=== PATIENT | female | born 1995 | race Two or more races ===

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

== ENCOUNTER 2017-07-08 03:43 | Observation (INO) | payer BC, MEDICAID ==
[~2017-07-08] VITALS: Ht 162.6 cm; Wt 115.7 kg
[2017-07-08] MEDS ORDERED: PNV1TABL76 MT (04:42)
== END 2017-07-08 05:00 | disposition home or self-care (01) ==
LOC: L&D 03:43
PROVIDERS: ADMIT Obstetrics & Gynecology; ATTEND Obstetrics & Gynecology
DX: O48.0 Post-term pregnancy (principal); Z3A.40 40 weeks gestation of pregnancy
CPT/HCPCS: 99281; G0378

== ENCOUNTER 2017-07-08 16:53 | Observation (INO) | payer MEDICAID ==
[~2017-07-08] VITALS: Ht 162.6 cm; Wt 113.9 kg
[~2017-07-08 16:53] MED LIST: PNV1TABL76 MT
== END 2017-07-08 18:00 | disposition home or self-care (01) ==
LOC: L&D 16:53
PROVIDERS: ADMIT Specialist; ATTEND Specialist
DX: O48.0 Post-term pregnancy (principal); Z3A.41 41 weeks gestation of pregnancy
CPT/HCPCS: G0378

== ENCOUNTER 2017-07-10 04:05 | Inpatient (IN) | payer MEDICAID ==
[~2017-07-10] VITALS: Ht 162.6 cm; Wt 115.7 kg
[2017-07-10] MEDS ORDERED: DEXT 5%/LR + PITOCIN 20UNITS/L 1,000 ML IV SCH (04:52)
[2017-07-10] MEDS ORDERED: PREN-176 PO (04:52)
[2017-07-10] MEDS ORDERED: NALOXONE HCL 0.4 MG/ML 1ML VIAL IM PRN (05:00)
[2017-07-10] MEDS ORDERED: METHYLERGONOVINE MALEATE 0.2 MG/ML IM PRN (05:00)
[2017-07-10] MEDS ORDERED: LIDOCAINE HCL 1% 20ML VIAL (Pyxis) INJ INFIL SCH (05:00)
[2017-07-10] MEDS: LACTATED RINGERS 1,000 ML IV SCH ×4 (05:18→22:22)
[2017-07-10] MEDS: BUTORPHANOL TARTRATE 2 MG/ML VIAL IV PRN ×3 (05:45→19:42)
[2017-07-10 06:37] LABS: CLARITY URINE CLEAR (CLEAR); COLOR URINE YELLOW (YELLOW); KETONES URINE NEGATIVE (NEGATIVE); LEUKOCYTE ESTERASE URINE NEGATIVE (NEGATIVE); NITRITE URINE NEGATIVE (NEGATIVE); OCCULT BLOOD URINE NEGATIVE (NEGATIVE); PROTEIN URINE 1+ (NEGATIVE); SPECIFIC GRAVITY URINE 1.017 (1.005-1.030); UROBILINOGEN URINE 0.2 E.U./dL (0.2-1.0)
[2017-07-10 06:45] LABS: INR 0.9; PARTIAL THROMBOPLASTIN TIME 26.6 sec (23.4-31.0); PROTHROMBIN TIME 9.7 sec (9.4-11.6)
[2017-07-10 06:46] LABS: BASOPHILS % 0.2 % (0.0-2.0); EOSINOPHILS % 0.5 % (0.0-5.0); HEMATOCRIT. 38.6 % (36.0-48.0); LYMPHOCYTES % 19.9 % (20.0-50.0); MEAN CORPUSCULAR HEMOGLOBIN 29.6 pg (28.0-32.0); MEAN CORPUSCULAR VOLUME 88.2 fL (81.0-99.0); MEAN PLATELET VOLUME 11.3 fl (7.4-10.4); NEUTROPHILS % 71.4 % (40.0-76.0); PLATELET 197 x1000/uL (130-400); RED BLOOD CELL COUNT 4.38 mill/uL (4.2-5.4); RED CELL DISTRIBUTION WIDTH 14.4 % (11.6-14.6)
[2017-07-10 07:15] LABS: *AMPHETAMINES SCREEN URINE NEGATIVE (NEGATIVE); *BARBITURATES SCREEN URINE NEGATIVE (NEGATIVE); *BENZODIAZEPINES SCREEN URINE NEGATIVE (NEGATIVE); *COCAINE SCREEN URINE NEGATIVE (NEGATIVE); CANNABINOID URINE SCREEN NEGATIVE (NEGATIVE); METHADONE URINE SCREEN NEGATIVE (NEGATIVE); OPIATES URINE SCREEN NEGATIVE (NEGATIVE); PHENCYCLIDINE URINE SCREEN NEGATIVE (NEGATIVE)
[2017-07-10] MEDS ORDERED: INFLUENZA VIRUS VACCINE 0.5ML SYR IM ONE (12:00)
[2017-07-10 13:18] LABS: RUBELLA IGG 124.9 IU/mL (4.99-10)
[2017-07-10 13:19] LABS: HEPATITIS B SURFACE ANTIGEN NEGATIVE
[2017-07-10] MEDS ORDERED: CITRIC ACID/SODIUM CITRATE SOLN 30ML UDC PO NR (20:45)
[2017-07-10] MEDS ORDERED: EPHEDRINE SULFATE 50MG/ML VIAL ONE (21:04)
[2017-07-10] MEDS ORDERED: SODIUM CHLORIDE 0.9% 10ML VIAL ONE ×2 (21:04→21:10)
[2017-07-10] MEDS ORDERED: BUPIVACAINE HCL/PF 0.25% (2.5MG/ML) 10ML ONE (21:04)
[2017-07-10] MEDS ORDERED: FENTANYL CITRATE/PF 50MCG/ML 2ML VIAL ONE (21:08)
[2017-07-10] MEDS ORDERED: BUPIVACAINE HCL/NS/PF EPIDURAL 100 ML EP ONE (22:42)
[2017-07-11] MEDS ORDERED: DEXT 5%/LR + PITOCIN 20UNITS/L 1,000 ML IV SCH (04:48)
[2017-07-11] MEDS ORDERED: METHYLERGONOVINE MALEATE 0.2 MG/ML IM PRN (05:00)
[2017-07-11] MEDS ORDERED: IBUPROFEN 400MG TABLET PO PRN (05:00)
[2017-07-11] MEDS ORDERED: DIPHENHYDRAMINE 25MG CAPSULE PO PRN (05:00)
[2017-07-11] MEDS ORDERED: LANOLIN OINT 0.25 GM TUBE TOP PRN (05:00)
[2017-07-11] MEDS ORDERED: RHO(D) IMMUNE GLOBULIN 300 MCG/SYR IM PRN (05:00)
[2017-07-11 07:00] VITALS: BP 112/69
[2017-07-11 08:10] VITALS: BP 112/69
[2017-07-11] MEDS: IBUPROFEN 800MG TABLET PO PRN (10:33)
[2017-07-11] MEDS: PRENATAL VIT/FE FUMARATE/FA TABLET PO SCH (10:36)
[2017-07-11 16:23] VITALS: BP 112/54
[2017-07-11 19:24] VITALS: BP 106/64
[2017-07-11 23:58] VITALS: BP 113/62
[2017-07-12 07:22] LABS: BASOPHILS % 0.3 % (0.0-2.0); EOSINOPHILS % 1.1 % (0.0-5.0); HEMATOCRIT. 31.1 % (36.0-48.0); HEMOGLOBIN. 10.5 g/dL (12.0-16.0); LYMPHOCYTES % 24.8 % (20.0-50.0); MEAN CORPUSCULAR VOLUME 88.8 fL (81.0-99.0); MEAN PLATELET VOLUME 11.2 fl (7.4-10.4); NEUTROPHILS % 64.8 % (40.0-76.0); PLATELET 151 x1000/uL (130-400); RED CELL DISTRIBUTION WIDTH 14.5 % (11.6-14.6)
[2017-07-12 07:32] VITALS: BP 103/50
[2017-07-12] MEDS: PRENATAL VIT/FE FUMARATE/FA TABLET PO SCH (08:10)
[2017-07-12] MEDS: IBUPROFEN 800MG TABLET PO PRN (08:10)
[2017-07-12 16:03] VITALS: BP 122/57
[2017-07-12 20:00] VITALS: BP 122/66
[2017-07-12 23:13] VITALS: BP 125/67
[2017-07-13] MEDS: PRENATAL VIT/FE FUMARATE/FA TABLET PO SCH (08:18)
[2017-07-13 08:20] VITALS: BP 117/63
[2017-07-13] MEDS: IBUPROFEN 800MG TABLET PO PRN (08:20)
== END 2017-07-13 11:40 | disposition home or self-care (01) | DRG 560 ==
LOC: L&D 04:05 → OBSVTOIN 04:05 → 7EST PP/OB 07-11 07:51
PROVIDERS: ADMIT Obstetrics & Gynecology; ATTEND Obstetrics & Gynecology
PROC: 0W8NXZZ Division of Female Perineum, External Approach (ICD-10-PCS; 2017-07-11)
PROC: 3E0R3BZ Introduction of Anesthetic Agent into Spinal Canal, Percutaneous Approach (ICD-10-PCS; 2017-07-11)
PROC: 00HU33Z Insertion of Infusion Device into Spinal Canal, Percutaneous Approach (ICD-10-PCS; 2017-07-11)
PROC: 10E0XZZ Delivery of Products of Conception, External Approach (ICD-10-PCS; principal; 2017-07-11 04:12)
DX: O48.0 Post-term pregnancy (principal); D62 Acute posthemorrhagic anemia; O70.9 Perineal laceration during delivery, unspecified; O99.03 Anemia complicating the puerperium; Z3A.38 38 weeks gestation of pregnancy; Z37.0 Single live birth
CPT/HCPCS: 36415; 80305; 81001; 85025; 85610; 85730; 86592; 86703; 86762; 86850; 86900; 87340; 90686; 99281; A4216; J0171; J0595; J2590; J3010; J3490; J7120; A4315